=== PATIENT | male | born 1990 | race African-American/Black ===

== ENCOUNTER → 2018-02-07 | Emergency (ER) | payer SELFPAY | END | disposition home or self-care (01) | LOC: EDUNIT# | DX: Z53.21 Procedure and treatment not carried out due to patient leaving prior to being seen by health care provider (principal) ==

== ENCOUNTER 2018-10-08 21:27 | Emergency (ER) | payer OTHER ==
[2018-10-08 21:35] VITALS: BP 119/76
--- NOTE | 2018-10-08 22:11 | EDPHY ---
H & P Stated Complaint: PAZ ABSCESS X 1 WK Time Seen by Provider: 10/08/18 22:07 HPI/ROS: HPI: This is a 28-year-old male who presents with Chief Complaint: Abscess on left upper arm Location: Left upper arm Quality: Abscess Duration: 1 week Signs and Symptoms: No bleeding, no radiation, no numbness, no weakness, no tingling, no incontinence, no decreased range of motion, no swelling, + pain, no fever, + skin color changes Timing: Worsening Severity: Moderate Context: Patient is right-hand dominant, history of IV drug use, meth abuse, heroin abuse, presents with complaints of left upper arm abscess has slowly worsened over the last week. He reports that the area is red and warm to touch. He has not tried anything for the symptoms. Reports tetanus is current. Allergy to penicillins. Modifying Factors: None Comment: ROS: A comprehensive 10 system review of systems is otherwise negative aside from elements mentioned in the history of present illness. MEDICAL/SURGICAL/SOCIAL HISTORY: Medical history: Depression, polysubstance abuse, Hernia, asthma, HEROIN, METH ABUSE, IV DRUG USER Surgical history: Denies Social history: Current Every day smoker CONSTITUTIONAL: Extremely anxious, labile, adult white male awake and alert, no obvious distress HEENT: Atraumatic and normocephalic, PERRL, EOMI. Nares patent; no rhinorrhea; no nasal mucosal edema. Tympanic membranes clear. Oropharynx clear, no exudate and moist pink mucosa. Airway patent. No lymphadenopathy. No meningismus. Cardiovascular: Normal S1/S2, regular rate, regular rhythm, without murmur rub or gallop. PULMONARY/CHEST: Symmetrical and nontender. Clear to auscultation bilaterally. Good air movement. No accessory muscle usage. ABDOMEN: Soft, nondistended, nontender, no rebound, no guarding, no peritoneal signs, no masses or organomegaly. No CVAT. EXTREMITIES: 2/2 pulses, strength 5/5, left upper arm shows approximately 4 in x 4 in fluctuant abscess 2 in superior to the antecubital fossa with mild surrounding erythema/induration. Left ELBOW: Full extension to 180, flexion to 150, no tenderness over medial epicondyle, no tenderness over lateral epicondyle, no effusion. no deformities, no clubbing, no cyanosis or edema. NEUROLOGICAL: no focal neuro deficits. GCS 15. SKIN: Warm and dry, no erythema. no rash. Good capillary refill. Source: Patient Exam Limitations: No limitations - Personal History Current Tetanus Diphtheria and Acellular Pertussis (TDAP): Yes Tetanus Vaccine Date: < 10 YEARS - Medical/Surgical History Hx Asthma: Yes Hx Chronic Respiratory Disease: No Hx Diabetes: No Hx Cardiac Disease: No Hx Renal Disease: No Hx Cirrhosis: No Hx Alcoholism: No Hx HIV/AIDS: No Hx Splenectomy or Spleen Trauma: No Other PMH: Depression, polysubstance abuse, Hernia, asthma, HEROIN, METH ABUSE, IV DRUG USER - Social History Smoking Status: Current every day smoker Constitutional: Initial Vital Signs Temperature (C) 36.4 C 10/08/18 21:33 Heart Rate 104 H 10/08/18 21:33 Respiratory Rate 16 10/08/18 21:33 Blood Pressure 119/76 10/08/18 21:33 O2 Sat (%) 98 10/08/18 21:33 O2 Delivery Mode Room Air Allergies/Adverse Reactions: Penicillins Allergy (Verified 03/14/15 22:20) Home Medications: Medication Instructions Recorded Cephalexin [Keflex (*)] 500 mg PO TID #21 cap 10/08/18 Sulfamethox/Tmp 800/160 mg 1 tab PO BID #14 tab 10/08/18 [Bactrim Ds] Medical Decision Making Procedures: Procedure: Abscess drainage. The patient's abscess was located on the left upper arm. I obtained verbal consent from the patient to drain the abscess who was informed about the possibility of bleeding and pain. The abscess was incised with #18 scalpel and 30 mL of purulent drainage was expressed. I irrigated the wound and placed some iodoform packing. Clean sterile dressing applied. The patient tolerated the procedure well. The procedure was performed by myself. ED Course/Re-evaluation: Tetanus is current. Local anesthesia provided Abscess I&D; 30 mL of purulent discharge; packing placed Given Keflex and Bactrim Verbal and written wound care instructions provided Wound check in 2-3 days No signs of neurovascular compromise/tenting of skin/compartment syndrome/ extremities and joints examined above and below area of concern and are neurovascularly intact. This patient was seen under the supervision of my secondary supervising physician. I evaluated care for this patient with attending. Discussed this patient with Dr. Arias. Differential Diagnosis: Differential diagnosis includes but is not limited to abscess, MRSA infection Departure - Departure Disposition: Home, Routine, Self-Care Clinical Impression: Abscess of left upper extremity Condition: Good Instructions: Abscess Follow-up (ED), Abscess (ED), Abscess Incision and Drainage (DC) Additional Instructions: Keep the dressing dry and in place for 48-72 hours. Take Tylenol 650 mg every 4 hours and/or Ibuprofen 600 mg every 8 hours with food as needed for pain. Take antibiotics as directed. Do not skip a dose. Wound Care Follow-Up: Wound evaluation and dressing change in [2-3] days. There is a charge for this evaluation in the Emergency Department. Referrals: [facility],. [Clinic] - 5-7 days, if not improved Prescriptions: Cephalexin [Keflex (*)] 500 mg PO TID #21 cap Sulfamethox/Tmp 800/160 mg [Bactrim Ds] 1 tab PO BID #14 tab
[2018-10-08] MEDS ORDERED: CEPHALEXIN 500MG PREPACK#4 BTL TAKEHOME ONE (22:45)
[2018-10-08] MEDS ORDERED: SULFAMET/TMP DS PREPACK#2 BTL TAKEHOME ONE (22:45)
== END 2018-10-08 23:29 | disposition home or self-care (01) ==
PROC: 0H9CXZZ Drainage of Left Upper Arm Skin, External Approach (ICD-10-PCS; principal; 2018-10-08)
DX: L02.414 Cutaneous abscess of left upper limb (principal); F32.9 Major depressive disorder, single episode, unspecified; F19.20 Other psychoactive substance dependence, uncomplicated; F17.200 Nicotine dependence, unspecified, uncomplicated

== ENCOUNTER 2019-01-19 22:18 | Emergency (ER) | payer OTHER ==
[2019-01-19] MEDS ORDERED: ACETAMINOPHEN 500 MG TAB PO ONE (22:26)
[2019-01-19] MEDS ORDERED: IBUPROFEN 800 MG TAB PO ONE (22:26)
--- NOTE | 2019-01-19 22:26 | EDPHY ---
H & P Time Seen by Provider: 01/19/19 22:23 HPI/ROS: HPI: This is a 28-year-old male who presents with Chief Complaint: Feet hurt Location: Bilateral feet Quality: Pain Duration: 8 hr Signs and Symptoms: No bleeding, no radiation, no numbness, no weakness, no tingling, no incontinence, no decreased range of motion, no swelling, + pain, no fever Timing: Gradual onset, constant Severity: 03/04 Context: Patient wears Maximo shoes, homeless, walks several miles per day, presents with 8 hr history of slowly worsening bilateral foot pain at both heels and at the ball of the of both feet. Patient reports that he has "flat- footed." Denies any actual trauma. Neck has no skin color changes, no blisters , no radiation, no weakness, no decreased range of motion. Modifying Factors: None Comment: ROS: A comprehensive 10 system review of systems is otherwise negative aside from elements mentioned in the history of present illness. MEDICAL/SURGICAL/SOCIAL HISTORY: Medical history: Depression, polysubstance abuse, Hernia, asthma, HEROIN, METH ABUSE, IV DRUG USER Surgical history: Denies Social history: Transient. Tobacco user. CONSTITUTIONAL: Extremely polite and cooperative her can [place] male, awake and alert, no obvious distress HEENT: Atraumatic and normocephalic, PERRL, EOMI. Nares patent; no rhinorrhea; no nasal mucosal edema. Tympanic membranes clear. Oropharynx clear, no exudate and moist pink mucosa. Airway patent. No lymphadenopathy. No meningismus. Cardiovascular: Normal S1/S2, regular rate, regular rhythm, without murmur rub or gallop. PULMONARY/CHEST: Symmetrical and nontender. Clear to auscultation bilaterally. Good air movement. No accessory muscle usage. ABDOMEN: Soft, nondistended, nontender, no rebound, no guarding, no peritoneal signs, no masses or organomegaly. No CVAT. EXTREMITIES: 2/2 pulses, strength 5/5, bilateral Ankle: Plantar flexion to 50 , dorsiflexion to 20. Foot inversion to 35 degree. No tenderness/swelling Anterior talofibular ligament. No tenderness/swelling Calcaneofibular ligament , no tenderness/swelling posterior talofibular ligament, no tenderness/swelling posterior inferior tibiofibular ligament. Achilles tendon intact. Multiple trigger points reproducible heel and ball of foot pain bilaterally. no deformities, no clubbing, no cyanosis or edema. NEUROLOGICAL: no focal neuro deficits. GCS 15. SKIN: Warm and dry, no erythema. no rash. Good capillary refill. Source: Patient Exam Limitations: No limitations - Personal History Tetanus Vaccine Date: < 10 YEARS - Medical/Surgical History Hx Asthma: Yes Hx Chronic Respiratory Disease: No Hx Diabetes: No Hx Cardiac Disease: No Hx Renal Disease: No Hx Cirrhosis: No Hx Alcoholism: No Hx HIV/AIDS: No Hx Splenectomy or Spleen Trauma: No Other PMH: Depression, polysubstance abuse, Hernia, asthma, HEROIN, METH ABUSE, IV DRUG USER - Social History Smoking Status: Current every day smoker Constitutional: Initial Vital Signs Temperature (C) 36.5 C 01/19/19 22:24 Heart Rate 95 01/19/19 22:24 Respiratory Rate 16 01/19/19 22:24 Blood Pressure 147/105 H 01/19/19 22:24 O2 Sat (%) 97 01/19/19 22:24 O2 Delivery Mode Room Air Allergies/Adverse Reactions: Penicillins Allergy (Verified 01/21/19 21:33) Home Medications: Medication Instructions Recorded NK [No Known Home Meds] 01/19/19 Medical Decision Making Procedures: Procedure: Splint placement. A right postop shoe was applied. After application of the splint I returned and re-examined the patient. The splint was adequately immobilizing the joint and distal to the splint the patient's circulation and sensation was intact. Procedure: Splint placement. A left postop shoe was applied. After application of the splint I returned and re-examined the patient. The splint was adequately immobilizing the joint and distal to the splint the patient's circulation and sensation was intact. ED Course/Re-evaluation: Vital signs reviewed and stable upon arrival. Bilateral foot x-rays ordered my read shows no fracture, no dislocation. Positive pes planus Given Tylenol 1000 mg and ibuprofen 800 mg Suspect plantar fasciitis Given postoperative shoes x2 No signs of neurovascular compromise/tenting of skin/compartment syndrome/ extremities and joints examined above and below area of concern and are neurovascularly intact. This patient was seen under the supervision of my secondary supervising physician. I evaluated and cared for this patient with attending. Differential Diagnosis: Differential diagnosis includes but is not limited to calcaneal fracture, ankle sprain, plantar fasciitis, tendinitis, hallux valgus - Data Points Medications Given: Discontinued Medications Acetaminophen (Tylenol) 1,000 mg PO EDNOW ONE Stop: 01/19/19 22:27 Last Admin: 01/19/19 22:31 Dose: 1,000 mg Ibuprofen (Motrin) 800 mg PO EDNOW ONE Stop: 01/19/19 22:27 Last Admin: 01/19/19 22:31 Dose: 800 mg Departure - Departure Disposition: Home, Routine, Self-Care Clinical Impression: Bilateral plantar fasciitis Condition: Good Instructions: Plantar Fasciitis (ED), Flatfoot (DC), Plantar Fasciitis Exercises (ED) Additional Instructions: Please wear proper fitting shoes with good support. Take Tylenol 650 mg every 4 hours and/or Ibuprofen 600 mg every 8 hours with food as needed for pain. Apply ice for 30 minutes at a time; 2-3 times per day for the next 1-2 days. The x-rays obtained in the emergency department today demonstrate no evidence of an obvious fracture. Referrals: [facility],. [Clinic] - As per Instructions
[2019-01-19 23:04] VITALS: BP 140/86
== END 2019-01-19 23:06 | disposition home or self-care (01) ==
DX: M79.641 Pain in right hand (principal); M79.642 Pain in left hand; M21.41 Flat foot [pes planus] (acquired), right foot; M21.42 Flat foot [pes planus] (acquired), left foot; Z59.0 Homelessness
CPT/HCPCS: L4386

== ENCOUNTER 2019-01-21 21:30 | Emergency (ER) | payer OTHER | END 2019-01-21 21:57 | disposition home or self-care (01) ==